=== PATIENT | male | born 1975 | race Hispanic/Latino ===

== ENCOUNTER 2018-03-18 16:33 | Emergency (ER) | payer SELFPAY ==
[2018-03-18] MEDS ORDERED: NACL 0.9% 1000 ML 1,000 ML IV ONE (20:57)
[2018-03-18] MEDS ORDERED: ZOFRAN IV ONE (20:57)
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
[2018-03-18 21:29] LABS: Basophils % (Auto) 0.6 % (0.0-1.8); Eosinophils % (Auto) 0.2 % (0.0-4.3); Hematocrit 40.6 % (35.5-45.6); Hemoglobin 13.6 gm/dl (11.8-15.2); Lymphocytes # (Auto) 1.4 K/mm3 (1.2-5.4); Lymphocytes % (Auto) 21.7 % (13.4-35.0); Mean Corpuscular HGB Conc 33 % (32-34); Mean Corpuscular Hemoglobin 31 pg (28-32); Mean Corpuscular Volume 92 fl (84-94); Monocytes # (Auto) 0.3 K/mm3 (0.0-0.8); Monocytes % (Auto) 4.6 % (0.0-7.3); Platelet Count 132 K/mm3 (140-440); Red Cell Distribution Width 15.2 % (13.2-15.2)
[2018-03-18 21:31] LABS: Alanine Aminotransferase 105 units/L (7-56); Albumin 4.6 g/dL (3.9-5); BUN/Creatinine Ratio 13; Blood Urea Nitrogen 10 mg/dL (9-20); Calcium 8.8 mg/dL (8.4-10.2); Hemolysis Index 15; Lipase 22 units/L (13-60)
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
[2018-03-18] MEDS ORDERED: K-DUR PO ONE (21:33)
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
[2018-03-18 21:40] LABS: INR 0.88 (0.87-1.13)
[2018-03-18 21:41] LABS: Partial Thromboplastin Time 28.6 Sec. (24.2-36.6)
[2018-03-18 22:19] LABS: Bilirubin,Urine NEG (Negative); Blood,Urine MOD (Negative); Color,Urine Yellow (Yellow); Mucus,Urine FEW /HPF; Urobilinogen,Urine < 2.0 mg/dL (<2.0)
[2018-03-18 22:25] LABS: Amphetamine Screen,Urine PRESUMPTIVE NEGATIVE; Benzodiazepines Screen,Urine PRESUMPTIVE NEGATIVE; Cannabinoid Screen,Urine PRESUMPTIVE NEGATIVE; Cocaine Screen,Urine PRESUMPTIVE NEGATIVE; Opiate Screen,Urine PRESUMPTIVE NEGATIVE
[2018-03-18 22:38] LABS: Methadone Screen,Urine PRESUMPTIVE POSITIVE
--- NOTE | 2018-03-18 23:49 | Cat Scan Report ---
FINAL REPORT PROCEDURE: CT HEAD/BRAIN WO CON TECHNIQUE: Computerized tomography of the head was performed without contrast material. HISTORY: syncope, alcohol abuse COMPARISON: No prior studies are available for comparison. FINDINGS: Skull and scalp: Normal. Paranasal sinuses: Mucoid secretions with air-fluid level are noted in the right maxillary sinus.. Ventricles and subarachnoid spaces: Normal. Cerebrum: No evidence of hemorrhage, acute infarction or mass . Cerebellum and brainstem: No evidence of hemorrhage, acute infarction or mass. Vasculature: Normal. Comments: None. IMPRESSION: No acute intracranial abnormality Acute right maxillary sinusitis.
[2018-03-19] MEDS ORDERED: NACL 0.9% 1000 ML 1,000 ML IV ONE (00:14)
[2018-03-19] MEDS ORDERED: NACL 0.9% 1000 ML 1,000 ML ONE (00:14)
[2018-03-19] MEDS ORDERED: CATAPRES PO ONE ×2 (00:14→04:10)
[2018-03-19] MEDS ORDERED: CATAPRES ONE (00:15)
[2018-03-19] MEDS ORDERED: ZOFRAN ONE (00:21)
[2018-03-19] MEDS ORDERED: ZOFRAN IV ONE (00:22)
[2018-03-19] MEDS ORDERED: NORMODYNE IV ONE ×2 (02:41)
[2018-03-19 05:23] VITALS: BP 159/106
== END 2018-03-19 05:37 | disposition home or self-care (01) ==
LOC: ED 16:33
DX: S40.022A Contusion of left upper arm, initial encounter (principal); I10 Essential (primary) hypertension; J32.0 Chronic maxillary sinusitis; E87.6 Hypokalemia; D69.6 Thrombocytopenia, unspecified; X58.XXXA Exposure to other specified factors, initial encounter; Y93.89 Activity, other specified; Y92.89 Other specified places as the place of occurrence of the external cause; Y99.8 Other external cause status
CPT/HCPCS: 36415; 70450; 73060; 73090; 80053; 80307; 81001; 82550; 82553; 83690; 83735; 84484; 85025; 85610; 85730; 93005; 93010; 96361; 96374; 96375; 96376; 99285; G0480; J2405; J7030; 80320